=== PATIENT | female | born 1950 | race Caucasian/White ===

== ENCOUNTER 2018-04-15 11:55 | Observation (INO) | payer OTHER, MEDICARE ==
[2018-04-15 12:21] LABS: ADD MAN DIFF? NO
[2018-04-15 12:29] LABS: BASOPHIL # 0.1 10^3/ul (0.0-0.1); BASOPHILS % 0.9 % (0.0-2.0); EOSINOPHILS # 0.4 10^3/ul (0.0-0.5); EOSINOPHILS % 4.5 % (0.0-7.0); HEMATOCRIT 32.5 % (37.0-47.0); HEMOGLOBIN 9.9 g/dl (12.0-16.0); LYMPHOCYTES % 33.4 % (15.0-51.0); MEAN CORPUSCULAR HEMOGLOBIN 24.8 pg (29.0-33.0); MEAN CORPUSCULAR HGB CONC 30.5 g/dl (32.0-37.0); MEAN CORPUSCULAR VOLUME 81.3 fl (82.0-101.0); MEAN PLATELET VOLUME 11.6 fl (7.4-10.4); MONOCYTE # 0.6 10^3/ul (0.3-0.9); MONOCYTES % 6.2 % (0.0-11.0); NEUTROPHIL # 4.7 10^3/ul (1.6-7.5); NEUTROPHILS % 52.5 % (39.0-77.0); PLATELET COUNT 316 10^3/UL (140-415); RED CELL DISTRIBUTION WIDTH 17.1 % (11.5-14.5)
[2018-04-15 12:29] LABS: WHITE BLOOD COUNT 8.9 10^3/ul (4.8-10.8)
[2018-04-15 12:43] LABS: ANION GAP 17 (8-16); BLOOD UREA NITROGEN 25 mg/dl (7-20); CALCIUM 10.4 mg/dl (8.4-10.2); CARBON DIOXIDE 27 mmol/L (21-31); CHLORIDE 103 mmol/L (97-110); CREATININE 0.54 mg/dl (0.44-1.00); GLUCOSE 183 mg/dl (70-220); POTASSIUM 4.9 mmol/L (3.5-5.1); SODIUM 142 mmol/L (135-144)
[2018-04-15 12:45] LABS: INR 0.91; PROTIME 12.3 Sec (11.9-14.9)
[2018-04-15 12:56] LABS: TROPONIN-I < 0.012 ng/ml (0.000-0.120)
[2018-04-15] MEDS: ONDANSETRON 4 MG INJ IV ×2 (13:28→16:20)
[2018-04-15] MEDS: morphine 2 MG INJ IV (13:28)
[2018-04-15] MEDS: SOD CHLORIDE 0.9% 500 ML IV (13:29)
[2018-04-15] MEDS: ASPIRIN 325 MG TAB GTB (13:29)
[2018-04-15] MEDS: NITROGLYCERIN 2% 1 GM OINT PKT TD (13:29)
[2018-04-15] MEDS ORDERED: MAGNESIUM HYDROXIDE 30ML CUP PO (14:00)
[2018-04-15] MEDS ORDERED: NITROGLYCERIN (SL) 0.4 MG TAB SL (14:00)
[2018-04-15] MEDS ORDERED: DOCUSATE SODIUM 100 MG CAP PO (14:00)
[2018-04-15] MEDS ORDERED: NACL 0.9% 3 ML SYG IV (14:00)
[2018-04-15] MEDS ORDERED: ALBUTEROL 0.083% (NEB) 2.5 MG/3 ML AMP HHN ×2 (14:30→19:30)
[2018-04-15] MEDS ORDERED: DOCUSATE SODIUM 10 MG/ML (10ML CUP) GTB (15:00)
[2018-04-15] MEDS: LIDOCAINE 5% PATCH TD (16:19)
[2018-04-15] MEDS: ACETAMINOPHEN 325 MG TAB PO (16:19)
[2018-04-15] MEDS: LEVOFLOXACIN 500MG/D5W (PMX) 100 ML IVPB (16:20)
[2018-04-15] MEDS ORDERED: GLUCOSE GEL 15 GRAM TUBE BUCCAL (18:00)
[2018-04-15] MEDS ORDERED: GLUCAGON 1 MG INJ IM (18:00)
[2018-04-15] MEDS ORDERED: DEXTROSE 50% 50 ML SYRINGE IV ×2 (18:00)
[2018-04-15] MEDS ORDERED: GLUCOSE GEL 15 GRAM TUBE PO ×2 (18:00)
[2018-04-15] MEDS: KETOROLAC 30 MG INJ IV (18:06)
[2018-04-15 18:14] LABS: CREATINE KINASE 84 IU/L (23-200)
[2018-04-15 18:27] LABS: CK INDEX 1.5; CK-MB 1.23 ng/ml (0.0-2.4)
[2018-04-15 18:32] LABS: TROPONIN-I < 0.012 ng/ml (0.000-0.120)
[2018-04-15] MEDS ORDERED: ACETAMINOPHEN 650MG/20.3ML CUP GTB (19:30)
[2018-04-15] MEDS ORDERED: ALBUTEROL/IPRATROPIUM (NEB) 3 ML AMP HHN ×2 (20:00→21:00)
[2018-04-15] MEDS ORDERED: ACETAMINOPHEN 325 MG TAB GTB (20:00)
[2018-04-15] MEDS ORDERED: NON-FORMULARY/PATIENT OWN MED (Omeprazole* 40 MG) GTB (21:00)
[2018-04-15] MEDS: INSULIN ASPART [NOVOLOG] 3 ML PEN SC (21:00)
[2018-04-15] MEDS: ALBUTEROL HFA 8 GM INHALER INH (21:05)
[2018-04-15] MEDS: CHOLECALCIFEROL 400 UNITS TAB GTB (21:13)
[2018-04-15] MEDS: CALCIUM CITRATE 950 MG TAB GTB (21:13)
[2018-04-15] MEDS: ZOLPIDEM 5 MG TAB PO (21:53)
[2018-04-16] MEDS ORDERED: PENDING SANTYL ORDER FOR WOUND CARE XX
[2018-04-16 01:04] LABS: CREATINE KINASE 86 IU/L (23-200)
[2018-04-16 01:16] LABS: CK INDEX 1.8; CK-MB 1.51 ng/ml (0.0-2.4)
[2018-04-16 01:24] LABS: TROPONIN-I < 0.012 ng/ml (0.000-0.120)
[2018-04-16] MEDS: Insulin NOVOLOG SS MILD Algorithm (NPO/TPN/ENTERAL FEEDS) SC ×6 (02:02→20:45)
[2018-04-16] MEDS: PANTOPRAZOLE (EC) 40 MG TAB PO (05:21)
[2018-04-16 05:55] LABS: ADD MAN DIFF? NO
[2018-04-16 06:07] LABS: BASOPHIL # 0.1 10^3/ul (0.0-0.1); BASOPHILS % 0.9 % (0.0-2.0); EOSINOPHILS # 0.3 10^3/ul (0.0-0.5); HEMATOCRIT 29.2 % (37.0-47.0); HEMOGLOBIN 9.1 g/dl (12.0-16.0); LYMPHOCYTES # 2.4 10^3/ul (0.8-2.9); LYMPHOCYTES % 31.1 % (15.0-51.0); MEAN CORPUSCULAR HEMOGLOBIN 25.1 pg (29.0-33.0); MEAN CORPUSCULAR HGB CONC 31.2 g/dl (32.0-37.0); MEAN CORPUSCULAR VOLUME 80.4 fl (82.0-101.0); MONOCYTE # 0.5 10^3/ul (0.3-0.9); MONOCYTES % 5.9 % (0.0-11.0); NEUTROPHIL # 4.3 10^3/ul (1.6-7.5); NEUTROPHILS % 55.4 % (39.0-77.0); NUCLEATED RED BLOOD CELLS% 0.3 /100WBC (0.0-0.0); PLATELET COUNT 321 10^3/UL (140-415); RED BLOOD COUNT 3.63 10^6/ul (4.20-5.40); RED CELL DISTRIBUTION WIDTH 16.8 % (11.5-14.5)
[2018-04-16 06:07] LABS: WHITE BLOOD COUNT 7.8 10^3/ul (4.8-10.8)
[2018-04-16 06:35] LABS: IRON 65 ug/dl (35-150)
[2018-04-16 06:44] LABS: ALBUMIN 4.2 g/dl (3.3-4.9); ANION GAP 16 (8-16); BLOOD UREA NITROGEN 27 mg/dl (7-20); CALCIUM 10.1 mg/dl (8.4-10.2); CARBON DIOXIDE 27 mmol/L (21-31); CHLORIDE 105 mmol/L (97-110); CREATININE 0.74 mg/dl (0.44-1.00); GLUCOSE 214 mg/dl (70-220); PHOSPHORUS 4.3 mg/dl (2.5-4.9); POTASSIUM 4.3 mmol/L (3.5-5.1); SODIUM 144 mmol/L (135-144)
[2018-04-16 06:45] LABS: % IRON SATURATION 18 % SAT (22-52); TOTAL IRON BINDING CAPACITY 360 ug/dl (241-421)
[2018-04-16 06:50] LABS: CHOL/HDL RATIO 6.1 RATIO; CHOLESTEROL 154 mg/dl (100-200); HDL CHOLESTEROL 25 mg/dl (35-98); LDL CHOLESTEROL,CALCULATED 58 mg/dl; TRIGLYCERIDES 357 mg/dl (0-149)
[2018-04-16] MEDS: KETOROLAC 30 MG INJ IV ×2 (07:07→20:53)
[2018-04-16 07:36] LABS: HEMOGLOBIN A1C 6.9 % (0-5.9)
[2018-04-16] MEDS: ASCORBIC ACID 500 MG TAB GTB (08:30)
[2018-04-16] MEDS: LISINOPRIL 10 MG TAB GTB (08:30)
[2018-04-16] MEDS: CALCIUM CITRATE 950 MG TAB GTB ×2 (08:30→20:37)
[2018-04-16] MEDS: AMLODIPINE 10 MG TAB GTB (08:31)
[2018-04-16] MEDS: CHOLECALCIFEROL 400 UNITS TAB GTB ×2 (08:31→20:37)
[2018-04-16] MEDS: MULTIVITAMINS THERAPEUTIC TAB GTB (08:31)
[2018-04-16] MEDS: LIDOCAINE 5% PATCH TD (08:33)
[2018-04-16] MEDS: ENOXAPARIN 40 MG/0.4 ML SYG SC (08:35)
[2018-04-16] MEDS ORDERED: BISACODYL 10 MG SUPP PR (09:00)
[2018-04-16] MEDS: ALBUTEROL HFA 8 GM INHALER INH ×3 (09:09→19:34)
[2018-04-16] MEDS: ESCITALOPRAM 10 MG TAB GTB (09:52)
[2018-04-16] MEDS: FERROUS SULFATE (EC) 325 MG TAB PO ×3 (09:53→20:37)
[2018-04-16] MEDS: LORAZEPAM 0.5 MG TAB GTB (09:53)
[2018-04-16] MEDS: INSULIN ASPART [NOVOLOG] 3 ML PEN SC (12:33)
[2018-04-16] MEDS: INSULIN DETEMIR 30 UNIT SC (12:34)
[2018-04-16] MEDS: NON-FORMULARY/PATIENT OWN MED (Lactobacillus Combo No.11 (Probiotic) 1 CAP) GTB (12:34)
[2018-04-16] MEDS: LEVETIRACETAM (100 MG/ML) 5ML CUP GTB ×2 (12:48→20:37)
[2018-04-16] MEDS: LACTOBACILLUS RHAMNOSUS CAP GTB ×2 (12:49→20:37)
[2018-04-16] MEDS: INSULIN DETEMIR [LEVEMIR] 3ML CART SC ×2 (12:52→20:45)
[2018-04-16] MEDS: LEVOFLOXACIN 500MG/D5W (PMX) 100 ML IVPB (15:03)
[2018-04-16] MEDS: ZOLPIDEM 5 MG TAB PO (20:53)
[2018-04-17] MEDS: Insulin NOVOLOG SS MILD Algorithm (NPO/TPN/ENTERAL FEEDS) SC ×4 (01:27→12:48)
[2018-04-17] MEDS: LEVOFLOXACIN 500 MG TAB GTB (05:13)
[2018-04-17] MEDS: LORAZEPAM 0.5 MG TAB GTB ×2 (05:13→12:43)
[2018-04-17] MEDS: PANTOPRAZOLE (EC) 40 MG TAB PO (05:13)
[2018-04-17 06:44] LABS: ALBUMIN 4.3 g/dl (3.3-4.9); ANION GAP 16 (8-16); BLOOD UREA NITROGEN 20 mg/dl (7-20); CALCIUM 10.4 mg/dl (8.4-10.2); CARBON DIOXIDE 25 mmol/L (21-31); CHLORIDE 106 mmol/L (97-110); CREATININE 0.67 mg/dl (0.44-1.00); GLUCOSE 205 mg/dl (70-220); POTASSIUM 3.9 mmol/L (3.5-5.1); SODIUM 143 mmol/L (135-144)
[2018-04-17] MEDS: ALBUTEROL HFA 8 GM INHALER INH ×2 (08:10→14:47)
[2018-04-17] MEDS: LEVETIRACETAM (100 MG/ML) 5ML CUP GTB (09:06)
[2018-04-17] MEDS: ESCITALOPRAM 10 MG TAB GTB (09:07)
[2018-04-17] MEDS: FERROUS SULFATE (EC) 325 MG TAB PO ×2 (09:07→12:42)
[2018-04-17] MEDS: LIDOCAINE 5% PATCH TD (09:07)
[2018-04-17] MEDS: CALCIUM CITRATE 950 MG TAB GTB (09:07)
[2018-04-17] MEDS: LISINOPRIL 10 MG TAB GTB (09:07)
[2018-04-17] MEDS: LACTOBACILLUS RHAMNOSUS CAP GTB (09:07)
[2018-04-17] MEDS: CHOLECALCIFEROL 400 UNITS TAB GTB (09:07)
[2018-04-17] MEDS: MULTIVITAMINS THERAPEUTIC TAB GTB (09:07)
[2018-04-17] MEDS: ASCORBIC ACID 500 MG TAB GTB (09:08)
[2018-04-17] MEDS: AMLODIPINE 10 MG TAB GTB (09:08)
[2018-04-17] MEDS: INSULIN DETEMIR [LEVEMIR] 3ML CART SC (09:21)
[2018-04-17] MEDS: ENOXAPARIN 40 MG/0.4 ML SYG SC (09:22)
[2018-04-17] MEDS ORDERED: EPOETIN 4000 UNITS/ML VIAL (ONCOLOGY) SC (17:00)
== END 2018-04-17 15:55 ==
LOC: E/R 11:55 → ICU 13:27
DX: R07.89 Other chest pain (principal); J40 Bronchitis, not specified as acute or chronic; D64.9 Anemia, unspecified; E83.52 Hypercalcemia; E11.9 Type 2 diabetes mellitus without complications; Z79.4 Long term (current) use of insulin; I10 Essential (primary) hypertension; I69.354 Hemiplegia and hemiparesis following cerebral infarction affecting left non-dominant side; J96.10 Chronic respiratory failure, unspecified whether with hypoxia or hypercapnia; Z99.81 Dependence on supplemental oxygen; Z87.891 Personal history of nicotine dependence; E66.9 Obesity, unspecified; Z68.32 Body mass index [BMI] 32.0-32.9, adult
CPT/HCPCS: 36415; 71045; 80048; 80061; 80069; 82550; 82553; 82962; 83036; 83540; 83735; 84443; 84484; 85025; 85610; 85730; 93005; 93306; 94002; 94003; 94640; 96374; 96375; 99217; 99285-25; G0378